=== PATIENT | male | born 2000 | race Caucasian/White ===

== ENCOUNTER 2020-04-09 13:01 | Emergency (ER) | payer MEDICAID, SELFPAY ==
[2020-04-09 13:10] VITALS: BP 141/65; PULSE 76; RESP 20; TEMP 36.8; O2SAT 99
--- NOTE | 2020-04-09 13:48 | ED.GENADULT ---
HPI - General Adult General Chief complaint: Upper Respiratory Infection Stated complaint: sore throat/headache/ear pain Time Seen by Provider: 04/09/20 13:36 Source: patient and RN notes reviewed Mode of arrival: ambulatory Limitations: no limitations History of Present Illness HPI narrative: 19-year-old male presents with complaints of otalgia with decrease hearing, sore throat and intermittent congestion for the past 3 days. No treatment. Denies ear drainage or trauma. No high fevers, drooling, neck or throat swelling. Pain is bilateral. Hurts to swallow. Exacerbation factors consist of eating and drinking. No cough or rhinorrhea. Nasal congestion intermittently. No voice change. No nausea, vomiting, diarrhea, or abdominal pain. Tolerating liquids well. Denies chills, dyspnea, difficulty swallowing, jaw pain, dental pain, facial pain, foreign body sensation, and rash. Denies headaches, weakness, fatigue, or myalgia, or facial swelling. Denies chest pain or dyspnea. Denies recent traveling. Denies concern for COVID-19 or exposures been home since [id number] order except for essential household needs, working, and return home. Yair says 3-4 weeks ago he had self-isolated himself due to an illness. Remains active. Some parts of this dictation were generated by voice recognition software and may contain typographical and/or grammatical inaccuracies. Related Data Allergies Allergy/AdvReac Type Severity Reaction Status Date / Time No Known Allergies Allergy Verified 04/09/20 13:24 Review of Systems Review of Systems: Narrative: CONSTITUTIONAL: Denies fever, chills, sweats. EYES: Denies visual changes, redness, discharge. ENT: Denies rhinorrhea. Complains of sore throat, congestion, otalgia. CARDIOVASCULAR: Denies chest pain, palpitations, edema. RESPIRATORY: Denies dyspnea, wheezing, cough. GASTROINTESTINAL: Denies abdominal pain, nausea, vomiting, diarrhea. GENITOURINARY: Denies dysuria, hematuria, abnormal discharge. SKIN: Denies rash or itching. MUSCULOSKELETAL: Denies acute back pain, joint pain, or myalgia. NEUROLOGIC: Denies numbness or focal weakness. PSYCHIATRIC: Denies anxiety or depression. All systems reviewed & are unremarkable except as noted in HPI and below. [facility] Past Medical History Medical History (Updated 04/11/20 @ 23:46 by BRIGETTE Ovalle) No significant past medical history Surgical History Surgical History (Updated 04/09/20 @ 14:21 by BRIGETTE Ovalle) No significant past surgical history Family History Family History (Updated 04/09/20 @ 14:20 by BRIGETTE Ovalle) Father Alive and well Mother Alive and well Social History Social History (Updated 04/09/20 @ 14:20 by BRIGETTE Ovalle) Smoking status: Never smoker Tobacco type: cigarettes Second hand tobacco smoke exposure: No Alcohol intake: current Substance use: current Substance use type: marijuana Living arrangements: with family Occupation/Education: occupation Gender identity (if verbalized by the patient): Male Comments At time of signature, agree with nurse past medical, surgical, social, and family history. There is no relevant family history pertinent to the presenting complaint. Exam Narrative: Exam Narrative: GENERAL: This is a well-nourished, well-developed patient, in no apparent distress. Speaks in full sentences without deficits and ambulates with steady gait without dyspnea. HEAD: normocephalic, atraumatic. EYES: PERRL. Sclera clear/white. Vision is grossly intact. EARS: External ears normal, auditory canals clear and without drainage, TMs with mild effusion without erythema or perforation. Hearing grossly intact. NOSE: External nose normal with no obvious nasal discharge, nares with mild-moderate redness and enlarge turbinates, no rhinorrhea. Mouth: moist mucous membranes. THROAT: Mucous membranes moist, posterior pharynx with moderate erythema
== END 2020-04-09 14:05 | disposition home or self-care (01) ==
PROVIDERS: Emergency Provider Nurse Practitioner Family
DX: J02.9 Acute pharyngitis, unspecified (principal); H93.8X3 Other specified disorders of ear, bilateral
CPT/HCPCS: 87880; 99213; G0463